=== PATIENT | male | born 1985 | race Caucasian/White ===

== ENCOUNTER 2018-09-24 12:45 | Emergency (ER) | payer SELFPAY ==
[2018-09-24 12:57] VITALS: BP 118/84
--- NOTE | 2018-09-24 13:33 | UC ---
General HPI - HPI Summary HPI Summary: 33 year old male presents requesting STI screening. Denies symptoms. He has had multiple female partners. Last had unprotected sex 2 months ago. He also complains of intermittent heartburn. Reports 2-3 episodes/week. Occurs most frequently at night while lying down but occurs at other times as well. States symptoms tend to last for about 30-60 minutes and resolves on its own. Has not taken any OTC meds for symptoms. Denies fever, chills, chest pain, shortness of breath, abdominal pain, nausea, vomiting, diarrhea, blood in stools or melena. - History of Current Complaint Chief Complaint: UCSTDScreening Stated Complaint: STD TESTING Time Seen by Provider: 09/24/18 13:15 Hx Obtained From: Patient Pain Intensity: 0 - Allergy/Home Medications Allergies/Adverse Reactions: Allergies Allergy/AdvReac Type Severity Reaction Status Date / Time No Known Allergies Allergy Verified 09/24/18 12:58 Home Medications: Home Medications NK [No Home Medications Reported] 09/24/18 [History Confirmed 09/24/18] PMH/Surg Hx/FS Hx/Imm Hx Previously Healthy: Yes - Denies significant PMH - Surgical History Surgical History: None - Family History Known Family History: Positive: Hypertension - Paternal grandfather Negative: Cardiac Disease - Social History Occupation: Employed Full-time Lives: Alone Alcohol Use: Occasionally Substance Use Type: Cocaine, Other Substance Use Comment - Amount & Last Used: aaron Smoking Status (MU): Never Smoked Tobacco Review of Systems Constitutional: Negative Skin: Negative Respiratory: Negative Cardiovascular: Negative Gastrointestinal: Other - See HPI Genitourinary: Negative Is Patient Immunocompromised?: No All Other Systems Reviewed And Are Negative: Yes Physical Exam Triage Information Reviewed: Yes Appearance: Well-Appearing, No Pain Distress, Well-Nourished Vital Signs: Initial Vital Signs Temp 98 F 09/24/18 12:54 Pulse 76 09/24/18 12:54 Resp 16 09/24/18 12:54 BP 118/84 09/24/18 12:54 Pulse Ox 100 09/24/18 12:54 Neck: Positive: Supple, Nontender, No Lymphadenopathy Respiratory: Positive: Lungs clear, Normal breath sounds, No respiratory distress Cardiovascular: Positive: RRR, No Murmur, Pulses Normal, Brisk Capillary Refill Abdomen Description: Positive: Nontender, No Organomegaly, Soft. Negative: Distended, Guarding Bowel Sounds: Positive: Present Male Genital Exam: Positive: Normal Genitalia Neurological: Positive: Alert Skin Exam: Normal Course/Dx - Course Course Of Treatment: 33 year old male presents requesting STI screening. He also complains of intermittent heartburn. Exam unremarkable. STI testing performed as requested. Safe sex counseling provided. Recommend using OTC antacid and follow up with PCP. Warning symptoms reviewed. Verbalizes understanding and agrees with POC. - Differential Dx - Multi-Symptom Provider Diagnoses: Routine screening STI Discharge - Sign-Out/Discharge Documenting (check all that apply): Patient Departure All imaging exams completed and their final reports reviewed: No Studies - Discharge Plan Condition: Stable Disposition: HOME Patient Education Materials: Safe Sex (ED) Referrals: No Primary Care Phys,NOPCP [Primary Care Provider] - Additional Instructions: It will take a few days to get the results of sexually transmitted infection screening. You will receive a call from the infectious disease office regarding your HIV testing. For the other tests we will contact you if any are positive. Be sure to use barrier protection such as condom with all sexual intercourse to reduce the risk of transmission of sexually transmitted diseases. For your heartburn I would recommend taking an over the counter acid chief wheelage clerk such as Pepcid or Zantac according to directions for next 2 weeks to see if this improves your symptoms. Follow up with your primary care provider within 2 weeks for further evaluation. Seek immediate medical attention in the emergency room if you develop chest pain , feeling as if your heart is racing, weakness, dizziness, shortness of breath or any worsening of symptoms. - Billing Disposition and Condition Condition: STABLE Disposition: Home
== END 2018-09-24 14:08 | disposition home or self-care (01) ==
LOC: UCEAST 12:45
DX: Z11.3 Encounter for screening for infections with a predominantly sexual mode of transmission (principal); Z72.51 High risk heterosexual behavior; R12 Heartburn
CPT/HCPCS: 36415; 86592; 86703; 87491; 87591; 99201; G0463